=== PATIENT | male | born 2000 | race Caucasian/White ===

== ENCOUNTER 2022-03-09 23:41 | Emergency (ER) | payer OTHER ==
[2022-03-10] MEDS ORDERED: VIBRAMYCIN100 MG PO (01:16)
== END 2022-03-10 01:34 | disposition home or self-care (01) ==
LOC: FER 23:41
DX: S80.861A Insect bite (nonvenomous), right lower leg, initial encounter (principal); L03.115 Cellulitis of right lower limb; F17.210 Nicotine dependence, cigarettes, uncomplicated; Z28.310 Unvaccinated for COVID-19; W57.XXXA Bitten or stung by nonvenomous insect and other nonvenomous arthropods, initial encounter
CPT/HCPCS: 99282